=== PATIENT | female | born 1980 | race African-American/Black ===

== ENCOUNTER 2017-12-28 17:15 | Emergency (ER) | payer MEDICAID ==
[~2017-12-28] VITALS: Ht 157.5 cm; Wt 73.0 kg
[2017-12-28] MEDS ORDERED: diphenhydrAMINE HCL 50 MG/ML VIAL IM ONE (17:30)
[2017-12-28] MEDS ORDERED: HALOPERIDOL LACTATE INJ 5 MG/ML VIAL IM ONE ×2 (17:30→18:30)
[2017-12-28] MEDS ORDERED: LORAZEPAM INJ 2 MG/ML VIAL IM ONE (17:30)
[2017-12-28] MEDS ORDERED: IV NS 0.9% 1,000 ML BAG IV ONE (17:30)
--- NOTE | 2017-12-28 17:40 | NUR ---
Patient was found smoking meth, naked, in a bathroom of a vacant house under construction today. Noted combative, agitated. Seen by MD for eval. Safely placed on 4 point restraints per protocol. VSS. Safety and comfort measures provided. Will monitor.
[2017-12-28] MEDS ORDERED: diphenhydrAMINE HCL 50 MG/ML VIAL ONE (17:42)
[2017-12-28] MEDS ORDERED: HALOPERIDOL LACTATE INJ 5 MG/ML VIAL ONE ×2 (17:43→18:19)
[2017-12-28] MEDS ORDERED: LORAZEPAM INJ 2 MG/ML VIAL ONE (17:43)
--- NOTE | 2017-12-28 18:20 | NUR ---
IV ACCESS STARTED, BLOOD DRAWN FOR LABS. MEDICATED ORDERED.
[2017-12-28 18:58] LABS: BASOPHILS # (AUTO) 0.1 /CMM (0.0-0.2); BASOPHILS % (AUTO) 2.2 % (0.0-2.0); EOSINOPHILS % (AUTO) 4.8 % (0.0-6.0); HEMATOCRIT 39 % (33-45); HEMOGLOBIN 12.7 g/dL (11.5-14.8); LYMPHOCYTES # (AUTO) 2.2 /CMM (0.8-4.8); LYMPHOCYTES % (AUTO) 39.9 % (20.0-44.0); MEAN CORPUSCULAR HGB CONC 33 g/dl (31.0-36.0); MEAN CORPUSCULAR VOLUME 84 fL (82-100); MONOCYTES # (AUTO) 0.4 /CMM (0.1-1.30); MONOCYTES % (AUTO) 7.7 % (2.0-12.0); NEUTROPHILS # (AUTO) 2.5 /CMM (1.8-8.9); NEUTROPHILS % (AUTO) 45.4 % (43.0-81.0); PLATELET COUNT (AUTO) 318 /CMM (150-450); RDW COEFFICIENT OF VARIATION 12.9 (11.5-15.0); RED BLOOD CELL COUNT(AUTO) 4.58 MIL/uL (4.0-5.2); WHITE BLOOD COUNT (AUTO) 5.5 K/uL (4.3-11.0)
[2017-12-28 19:02] LABS: APPEARANCE,URINE Clear (CLEAR); BILIRUBIN,URINE Negative (NEGATIVE); BLOOD, URINE Negative Ery/uL (NEGATIVE); COLOR,URINE Yellow (YELLOW); KETONES,URINE Negative (NEGATIVE); LEUKOCYTE ESTERASE ,URINE Negative (NEGATIVE); NITRITE, URINE Negative (NEGATIVE); PH,URINE 5.5 (5.0-8.0); PROTEIN,URINE Negative (NEGATIVE); UGLUCOSE Negative (NEGATIVE); UROBILINOGEN,URINE 0.2 EU/dL (0.2)
[2017-12-28 19:19] LABS: CALCIUM, SERUM 8.5 mg/dL (8.5-10.1); CARBON DIOXIDE 23 mmol/L (21-32); CHLORIDE 105 mmol/L (98-107); GLUCOSE 88 mg/dL (74-106); SODIUM SERUM 140 mmol/L (136-145); UREA NITROGEN, BLOOD 12 mg/dL (7-18)
[2017-12-28 19:24] LABS: ALANINE AMINOTRANSFERASE 26 U/L (12-78); ALBUMIN 3.9 g/dL (3.4-5.0); ALCOHOL, BLOOD 79 mg/dL (0-0); ALKALINE PHOSPHATASE 84 U/L (46-116); ASPARTATE AMINOTRANSFERASE 22 U/L (15-37); BILIRUBIN,DIRECT 0.1 mg/dL (0.0-0.2); BILIRUBIN,TOTAL 0.2 mg/dL (0.2-1.0)
[2017-12-28 19:25] LABS: ACETAMINOPHEN < 2 ug/ml (10-30); SALICYLATE 2.1 mg/dL (2.8-20.0)
[2017-12-28 19:53] LABS: CREATINE KINASE, TOTAL 316 U/L (26-192)
--- NOTE | 2017-12-28 20:00 | NUR ---
Patient is resting comfortably in bed with eyes closed. Easily aroused. VSS
[2017-12-28 20:29] LABS: CREATINE KINASE MB 1.2 ng/mL (0-3.6)
[2017-12-28] MEDS: POTASSIUM CL. PREMIX PERIPHER. 50 ML IV SCH ×2 (21:50→22:50)
--- NOTE | 2017-12-28 22:00 | NUR ---
Patient is resting comfortably in bed with eyes closed. Easily aroused. VSS
[2017-12-28] MEDS ORDERED: POTASSIUM CL. PREMIX PERIPHER. 50 ML ONE (22:32)
--- NOTE | 2017-12-28 23:40 | NUR ---
RECEIVED REPORT FROM DAVID/JOSS. PT RESTING WITH EYES CLOSED, BARELY AROUSABLE. NO /S OF TRAUMA OR DISTRESS NOTED. RESP EVEN AND UNLABORED. PLACED BACK ON MONITOR.
--- NOTE | 2017-12-29 00:41 | NUR ---
HOB ELEVATED. DUQUE WELL WITHOUT ANY DISTRESS. RESP EVEN AND UNLABORED.
--- NOTE | 2017-12-29 01:30 | NUR ---
LAYING LT SIDE. NAD NOTED. RESP EVEN AND UNLABORED. MONITORED CLOSELY.
--- NOTE | 2017-12-29 02:40 | NUR ---
REPOSITIONED FOR COMFORT WITH HOB ELEVATED. NO S/S OF ACUTE DISTRESS NOTED. RESP EVEN AND UNLABORED AND ON MONITOR.
--- NOTE | 2017-12-29 03:31 | NUR ---
LAYING RT SIDE AT THIS TIME. RESP EVEN AND UNLABORED.
--- NOTE | 2017-12-29 04:50 | NUR ---
AAO X4; DENIES SI/HI. AMBULATED TO RESTROOM WITH STEADY GAIT. DENIES ANY SX'S AT THIS TIME.
[2017-12-29 05:40] VITALS: BP 130/78
--- NOTE | 2017-12-29 05:40 | NUR ---
PT TO BE D/C. PT ALERT AND ABLE TO MAKE DECISIONS ON OWN. VSS NAD
== END 2017-12-29 05:30 | disposition home or self-care (01) ==
LOC: EDBD 17:21 → ER 17:21
DX: F29 Unspecified psychosis not due to a substance or known physiological condition (principal); R41.82 Altered mental status, unspecified; F15.10 Other stimulant abuse, uncomplicated; F12.10 Cannabis abuse, uncomplicated
CPT/HCPCS: 36415; 80048-TC; 80076-TC; 80305; 81000-TC; 82550-TC; 82553-TC; 84703-TC; 85025-TC; A4606; G0480; J1200; J1630; J2060; J3480; J7030; Z7610